=== PATIENT | male | born 1950 | race Caucasian/White ===

== ENCOUNTER 2023-08-14 11:53 | Emergency (ER) | payer MEDICARE ==
[2023-08-14] MEDS ORDERED: Dexamethasone 10 MG/ML VIAL ONE (12:21)
[2023-08-14] MEDS ORDERED: Acetaminophen 500 MG TAB ONE (12:22)
[2023-08-14 12:58] LABS: SARS-CoV-2 NAA Rapid Test DETECTED (NotDetected)
== END 2023-08-14 13:07 | disposition home or self-care (01) ==
LOC: MADERS 11:53
DX: U07.1 COVID-19 (principal)
CPT/HCPCS: 87081; 87430; U0002; 99283; J1100